=== PATIENT | female | born 1985 | race Caucasian/White ===

== ENCOUNTER → 2016-10-04 | Outpatient (CLI) | payer OTHER ==
[~2016-10-04] MED LIST: ALBUTEROL0.09 MG/A2 IH; ALEVE220 MG PO; AMOXICILLIN500 MG PO; ANAPROX275 MG PO; BACTRIM DS 8001 TA1 PO; CIPROFLOXACIN500 MG PO; CLARITIN-D 24 H1 T24 PO; CLARITIN10 MG PO; DARVOCET N 1001 TAB PO; DOXYCYCLINE MO100 MG PO; ELMIRON100 MG PO; FLONASE ALLERG9.9 ML NAS; HYDROCODONE BIT1 T11 PO; IBU600 MG PO; LOMOTIL 0.025 M1 TA1 PO; MEDROL DOSEPAK4 MG PO; MIRENA52 MG IU; MOTRIN600 MG PO; MOTRIN800 MG PO; MUCINEX1200 MG PO; NKHM; PEN-VEE K500 MG PO; PEN-VK500 MG PO; PHENERGAN W/ DE30 ML PO; PREDNISONE20 MG PO; PRILOSEC20 MG PO; PYRIDIUM200 MG PO; ROBITUSSIN DAC PO; TOBREX OPHTH S2.5 ML OPH; TRAMADOL HCL50 MG PO; TRIMOX500 MG PO; TYLENOL W/CODEI1 TA2 PO; Tessalon Perle100 MG PO; ULTRAM50 MG PO; VICODIN 5/500 505 MG PO; VICODIN ES 7501 TAB PO; ZITHROMAX TRI-500 MG PO; ZITHROMAX Z PA250 MG PO; ZITHROMAX Z-PA250 MG PO; ZOFRAN ODT4 MG SL
[2016-10-04 08:07] LABS: BASO # 0.1 10*3/uL (0.0-0.1); BASO % 0.7 % (0.0-1.0); EOS # 0.3 10*3/uL (0.0-0.4); EOS % 2.3 % (1.0-4.0); HEMOGLOBIN 14.3 g/dl (12.0-16.0); IG # 0.2 10*3/uL (0.0-0.1); LYMPH # 3.5 10*3/uL (1.3-4.4); LYMPH % 28.5 % (27.0-41.0); MEAN CELL VOLUME 88.7 fl (81.0-99.0); MEAN CORPUSCULAR HGB 29.5 pg (27.0-31.0); MEAN CORPUSCULAR HGB CONC 33.3 g/dl (33.0-37.0); MEAN PLATELET VOLUME 8.5 fl (9.6-12.3); MONO # 0.8 10*3/uL (0.1-1.0); MONO % 6.6 % (3.0-9.0); NEUT # 7.3 10*3/uL (2.3-7.9); NEUT % 60.4 % (47.0-73.0); PLATELET COUNT AUTOMATED 407 10*3/uL (130-400); RED BLOOD COUNT 4.85 10*6/uL (4.10-5.10); WHITE BLOOD COUNT 12.1 10*3/uL (4.8-10.8)
[2016-10-04 08:09] LABS: BILIRUBIN NEGATIVE (NEGATIVE); BLOOD 1+ (NEGATIVE); CLARITY SL CLOUDY (CLEAR); COLOR YELLOW (YELLOW); GLUCOSE NEGATIVE (NEGATIVE); KETONE NEGATIVE (NEGATIVE); LEUKO ESTERASE TRACE (NEGATIVE); NITRITE NEGATIVE (NEGATIVE); PROTEIN NEGATIVE (NEGATIVE); UROBILINOGEN 0.2 E.U./dl (0.2-1.0)
[2016-10-04 08:20] LABS: BACTERIA TRACE; EPITHELIAL CELLS 16-20; MUCOUS 2+
[2016-10-04 08:28] LABS: ALBUMIN 3.6 gm/dl (3.1-4.5); ALKALINE PHOSPHATASE 73 U/L (45-117); BILIRUBIN, DIRECT < 0.1 mg/dL (0.0-0.2); BILIRUBIN, TOTAL 0.3 mg/dl (0.2-1.0); BUN 7 mg/dl (7-24); CARBON DIOXIDE 26 mmol/L (21-32); CHLORIDE 104 mmol/L (98-107); CHOLESTEROL 148 mg/dL (<200); EST GLOM FILT AFRICAN AMERICAN > 60 ml/min; GLUCOSE 99 mg/dL (65-99); HDL CHOLESTEROL 40 mg/dl (40-60); LDL CHOLESTEROL 90 mg/dL (9-159); SGOT/AST 18 IU/L (3-35); SGPT/ALT 31 U/L (12-78); SODIUM 141 mmol/L (136-145); THYROXINE (T4) TOTAL 7.9 ug/dl (4.8-13.9); TOTAL PROTEIN 7.1 gm/dL (6.4-8.2); TRIGLYCERIDES 92 mg/dl (<150); VLDL CHOLESTEROL 18 mg/dL (6-40)
== END | disposition home or self-care (01) ==
LOC: LAB 07:39
PROVIDERS: Nurse Practitioner Psychiatric/Mental Health
DX: F33.2 Major depressive disorder, recurrent severe without psychotic features (principal)

== ENCOUNTER 2016-10-07 09:26 | Emergency (ER) | payer OTHER ==
[~2016-10-07] VITALS: Ht 175.2 cm; Wt 97.5 kg
[2016-10-07] MEDS ORDERED: PRISTIQ50 MG PO (09:32)
[2016-10-07] MEDS ORDERED: DIPHENHYDRAMINE25 M2 PO (09:32)
== END 2016-10-07 10:04 | disposition home or self-care (01) ==
LOC: ED 09:26
DX: S05.02XA Injury of conjunctiva and corneal abrasion without foreign body, left eye, initial encounter (principal); F17.200 Nicotine dependence, unspecified, uncomplicated; Z79.899 Other long term (current) drug therapy; X58.XXXA Exposure to other specified factors, initial encounter; Y93.89 Activity, other specified; Y92.89 Other specified places as the place of occurrence of the external cause; Y99.9 Unspecified external cause status

== ENCOUNTER 2016-12-02 14:42 | Emergency (ER) | payer OTHER ==
[~2016-12-02] VITALS: Ht 177.8 cm; Wt 97.5 kg
[~2016-12-02 14:42] MED LIST changes: +DIPHENHYDRAMINE25 M2 PO; +PRISTIQ50 MG PO
[2016-12-02] MEDS ORDERED: DESVENLAFAXINE50 M4 PO (14:46)
[2016-12-02] MEDS ORDERED: TRAZODONE50 MG PO (14:47)
[2016-12-02] MEDS ORDERED: NAPROSYN500 MG PO (14:57)
== END 2016-12-02 15:02 | disposition home or self-care (01) ==
LOC: ED 14:42
DX: M79.604 Pain in right leg (principal)

== ENCOUNTER 2016-12-18 20:30 | Emergency (ER) | payer OTHER ==
[~2016-12-18] VITALS: Ht 177.8 cm; Wt 97.5 kg
[~2016-12-18 20:30] MED LIST changes: +DESVENLAFAXINE50 M4 PO; +NAPROSYN500 MG PO; +TRAZODONE50 MG PO
[2016-12-18] MEDS ORDERED: TYLENOL325 M2 PO (20:37)
[2016-12-18] MEDS ORDERED: AMOXICILLIN500 M2 PO (20:54)
[2016-12-18] MEDS ORDERED: NAPROSYN500 MG PO (20:54)
== END 2016-12-18 21:01 | disposition home or self-care (01) ==
LOC: ED 20:30
DX: K08.89 Other specified disorders of teeth and supporting structures (principal); F17.200 Nicotine dependence, unspecified, uncomplicated; Z79.899 Other long term (current) drug therapy

== ENCOUNTER 2016-12-29 01:34 | Emergency (ER) | payer OTHER ==
[~2016-12-29] VITALS: Wt 106.1 kg
[~2016-12-29 01:34] MED LIST changes: +AMOXICILLIN500 M2 PO; +TYLENOL325 M2 PO
[2016-12-29] MEDS ORDERED: CLINDAMYCIN HC300 MG PO (02:48)
== END 2016-12-29 02:57 | disposition home or self-care (01) ==
LOC: ED 01:34
DX: K04.01 Reversible pulpitis (principal); K02.9 Dental caries, unspecified; F17.200 Nicotine dependence, unspecified, uncomplicated

== ENCOUNTER 2017-01-22 20:44 | Emergency (ER) | payer OTHER ==
[~2017-01-22] VITALS: Ht 177.8 cm; Wt 102.1 kg
[~2017-01-22 20:44] MED LIST changes: +CLINDAMYCIN HC300 MG PO
[2017-01-22 21:05] LABS: BILIRUBIN NEGATIVE (NEGATIVE); BLOOD 3+ (NEGATIVE); CLARITY SL CLOUDY (CLEAR); COLOR YELLOW (YELLOW); GLUCOSE NEGATIVE (NEGATIVE); KETONE NEGATIVE (NEGATIVE); LEUKO ESTERASE 1+ (NEGATIVE); NITRITE POSITIVE (NEGATIVE); PROTEIN TRACE (NEGATIVE); SPECIFIC GRAVITY >= 1.030 (1.005-1.030); UROBILINOGEN 0.2 E.U./dl (0.2-1.0)
[2017-01-22 21:12] LABS: BACTERIA 2+; MUCOUS TRACE; URINE REFLEX COMMENT YES (NO); WBC TNTC wbc/hpf (0-5)
[2017-01-22] MEDS ORDERED: MACROBID100 M1 PO (21:32)
== END 2017-01-22 21:31 | disposition home or self-care (01) ==
LOC: ED 20:44
PROVIDERS: Nurse Practitioner Family
DX: N39.0 Urinary tract infection, site not specified (principal); R31.9 Hematuria, unspecified

== ENCOUNTER 2017-02-03 18:41 | Emergency (ER) | payer OTHER ==
[~2017-02-03] VITALS: Ht 177.8 cm; Wt 99.8 kg
[~2017-02-03 18:41] MED LIST changes: +MACROBID100 M1 PO
[2017-02-03] MEDS ORDERED: PRISTIQ ER25 MG PO (19:08)
[2017-02-03] MEDS ORDERED: AMOXICILLIN500 M2 PO (19:39)
== END 2017-02-03 20:23 | disposition home or self-care (01) ==
LOC: ED 18:41
DX: K08.89 Other specified disorders of teeth and supporting structures (principal)

== ENCOUNTER 2017-02-07 18:06 | Emergency (ER) | payer OTHER ==
[~2017-02-07] VITALS: Ht 177.8 cm; Wt 102.1 kg
[~2017-02-07 18:06] MED LIST changes: +PRISTIQ ER25 MG PO
== END 2017-02-07 18:47 | disposition home or self-care (01) ==
LOC: ED 18:06
DX: T15.91XA Foreign body on external eye, part unspecified, right eye, initial encounter (principal); Z79.899 Other long term (current) drug therapy; X58.XXXA Exposure to other specified factors, initial encounter; Y93.89 Activity, other specified; Y92.89 Other specified places as the place of occurrence of the external cause; Y99.8 Other external cause status

== ENCOUNTER 2017-03-09 21:36 | Emergency (ER) | payer OTHER ==
[~2017-03-09] VITALS: Ht 175.2 cm; Wt 97.5 kg
[2017-03-09] MEDS ORDERED: MEDROL DOSEPAK4 MG PO (22:48)
== END 2017-03-09 23:39 | disposition home or self-care (01) ==
LOC: ED 21:36
DX: R21 Rash and other nonspecific skin eruption (principal); Z79.899 Other long term (current) drug therapy

== ENCOUNTER 2017-03-19 19:48 | Emergency (ER) | payer OTHER ==
[2017-03-19] MEDS ORDERED: SEROQUEL25 MG PO (19:59)
[2017-03-19] MEDS ORDERED: Peridex 473 ML473 ML PO (20:09)
[2017-03-19] MEDS ORDERED: NAPROSYN500 MG PO (20:09)
[2017-03-19] MEDS ORDERED: PENICILLIN VK500 MG PO (20:09)
== END 2017-03-19 20:50 | disposition home or self-care (01) ==
LOC: ED 19:48
DX: K02.9 Dental caries, unspecified (principal); R03.0 Elevated blood-pressure reading, without diagnosis of hypertension; Z79.899 Other long term (current) drug therapy

== ENCOUNTER 2017-03-21 21:04 | Emergency (ER) | payer OTHER ==
[~2017-03-21] VITALS: Wt 97.5 kg
[~2017-03-21 21:04] MED LIST changes: +PENICILLIN VK500 MG PO; +Peridex 473 ML473 ML PO; +SEROQUEL25 MG PO
== END 2017-03-21 22:58 | disposition home or self-care (01) ==
LOC: ED 21:04
DX: K04.7 Periapical abscess without sinus (principal); Z79.899 Other long term (current) drug therapy

== ENCOUNTER 2017-04-01 12:34 | Emergency (ER) | payer OTHER ==
[~2017-04-01] VITALS: Wt 102.1 kg
[2017-04-01] MEDS ORDERED: LAMICTAL25 MG PO (12:51)
[2017-04-01 13:21] LABS: BASO # 0.1 10*3/uL (0.0-0.1); BASO % 0.8 % (0.0-1.0); EOS # 0.2 10*3/uL (0.0-0.4); EOS % 1.7 % (1.0-4.0); HEMATOCRIT 41.5 % (37.0-47.0); HEMOGLOBIN 13.8 g/dl (12.0-16.0); LYMPH # 2.3 10*3/uL (1.3-4.4); LYMPH % 24.2 % (27.0-41.0); MEAN CELL VOLUME 87.9 fl (81.0-99.0); MEAN CORPUSCULAR HGB 29.2 pg (27.0-31.0); MEAN CORPUSCULAR HGB CONC 33.3 g/dl (33.0-37.0); MEAN PLATELET VOLUME 8.5 fl (9.6-12.3); MONO # 0.6 10*3/uL (0.1-1.0); MONO % 6.3 % (3.0-9.0); NEUT % 64.7 % (47.0-73.0); PLATELET COUNT AUTOMATED 401 10*3/uL (130-400); RED BLOOD COUNT 4.72 10*6/uL (4.10-5.10); RED CELL DISTRI WIDTH 11.6 % (0-14.5); WHITE BLOOD COUNT 9.3 10*3/uL (4.8-10.8)
[2017-04-01 13:40] LABS: ALBUMIN 3.3 gm/dl (3.1-4.5); ALKALINE PHOSPHATASE 76 U/L (45-117); BUN 10 mg/dl (7-24); CHLORIDE 102 mmol/L (98-107); CREATININE 0.88 mg/dL (0.55-1.02); MAGNESIUM 2.1 mg/dL (1.5-2.1); POTASSIUM 3.5 mmol/L (3.5-5.1); SGOT/AST 27 IU/L (3-35); SGPT/ALT 40 U/L (12-78); SODIUM 136 mmol/L (136-145); TOTAL PROTEIN 7.6 gm/dL (6.4-8.2); TROPONIN I < 0.015 ng/ml (<0.045)
== END 2017-04-01 14:43 | disposition home or self-care (01) ==
LOC: ED 12:34
PROVIDERS: Nurse Practitioner Family
DX: R42 Dizziness and giddiness (principal); R03.0 Elevated blood-pressure reading, without diagnosis of hypertension; Z79.899 Other long term (current) drug therapy

== ENCOUNTER 2017-04-09 17:13 | Emergency (ER) | payer OTHER ==
[~2017-04-09] VITALS: Wt 102.1 kg
[~2017-04-09 17:13] MED LIST changes: +LAMICTAL25 MG PO
== END 2017-04-09 17:59 | disposition home or self-care (01) ==
LOC: ED 17:13
DX: G89.18 Other acute postprocedural pain (principal); Z79.899 Other long term (current) drug therapy

== ENCOUNTER 2017-05-09 15:35 | Emergency (ER) | payer OTHER ==
[~2017-05-09] VITALS: Ht 177.8 cm; Wt 102.1 kg
[2017-05-09] MEDS ORDERED: DEPAKOTE250 MG PO (15:53)
[2017-05-09] MEDS ORDERED: POTASSIUM CHLO10 ME4 PO (15:54)
[2017-05-09] MEDS ORDERED: ZANTAC 150150 MG PO (15:54)
[2017-05-09] MEDS ORDERED: HYDROCHLOROTHIA25 M1 PO (15:55)
[2017-05-09 16:25] LABS: BILIRUBIN NEGATIVE (NEGATIVE); BLOOD TRACE-INTACT (NEGATIVE); CLARITY SL CLOUDY (CLEAR); COLOR YELLOW (YELLOW); GLUCOSE NEGATIVE (NEGATIVE); KETONE NEGATIVE (NEGATIVE); LEUKO ESTERASE NEGATIVE (NEGATIVE); NITRITE NEGATIVE (NEGATIVE); UROBILINOGEN 0.2 E.U./dl (0.2-1.0)
[2017-05-09 16:35] LABS: BACTERIA 1+
[2017-05-09] MEDS ORDERED: CYCLOBENZAPRINE5 M3 PO (17:16)
[2017-05-09] MEDS ORDERED: MEDROL DOSEPAK4 MG PO (17:16)
== END 2017-05-09 17:20 | disposition home or self-care (01) ==
LOC: ED 15:35
PROVIDERS: Nurse Practitioner Family
DX: M54.42 Lumbago with sciatica, left side (principal); Z79.899 Other long term (current) drug therapy

== ENCOUNTER → 2017-06-02 | Outpatient (CLI) | payer OTHER ==
[~2017-06-02] MED LIST changes: +CYCLOBENZAPRINE5 M3 PO; +DEPAKOTE250 MG PO; +HYDROCHLOROTHIA25 M1 PO; +POTASSIUM CHLO10 ME4 PO; +ZANTAC 150150 MG PO
== END | disposition home or self-care (01) ==
LOC: US 05-23 13:53
DX: K76.0 Fatty (change of) liver, not elsewhere classified (principal)

== ENCOUNTER 2017-06-10 20:00 | Emergency (ER) | payer OTHER ==
[~2017-06-10] VITALS: Ht 180.3 cm; Wt 97.5 kg
[2017-06-10 21:12] LABS: BILIRUBIN NEGATIVE (NEGATIVE); BLOOD 2+ (NEGATIVE); CLARITY CLEAR (CLEAR); COLOR YELLOW (YELLOW); GLUCOSE NEGATIVE (NEGATIVE); KETONE NEGATIVE (NEGATIVE); LEUKO ESTERASE TRACE (NEGATIVE); NITRITE NEGATIVE (NEGATIVE); PH 6.5 (5.0-9.0); UROBILINOGEN 0.2 E.U./dl (0.2-1.0)
[2017-06-10 21:19] LABS: BACTERIA 2+; WBC 16-20 wbc/hpf (0-5)
[2017-06-10 22:00] LABS: BASO # 0.1 10*3/uL (0.0-0.1); BASO % 0.7 % (0.0-1.0); EOS # 0.2 10*3/uL (0.0-0.4); EOS % 1.9 % (1.0-4.0); LYMPH # 3.6 10*3/uL (1.3-4.4); LYMPH % 35.9 % (27.0-41.0); MEAN CELL VOLUME 84.7 fl (81.0-99.0); MEAN CORPUSCULAR HGB 28.9 pg (27.0-31.0); MEAN CORPUSCULAR HGB CONC 34.1 g/dl (33.0-37.0); MEAN PLATELET VOLUME 8.9 fl (9.6-12.3); MONO # 0.8 10*3/uL (0.1-1.0); MONO % 8.5 % (3.0-9.0); NEUT # 5.1 10*3/uL (2.3-7.9); NEUT % 51.3 % (47.0-73.0); PLATELET COUNT AUTOMATED 333 10*3/uL (130-400); RED BLOOD COUNT 4.84 10*6/uL (4.10-5.10); RED CELL DISTRI WIDTH 11.7 % (0-14.5); WHITE BLOOD COUNT 9.9 10*3/uL (4.8-10.8)
[2017-06-10 22:15] LABS: ALBUMIN 3.4 gm/dl (3.1-4.5); ALKALINE PHOSPHATASE 78 U/L (45-117); BUN 11 mg/dl (7-24); CHLORIDE 100 mmol/L (98-107); CREATININE 0.72 mg/dL (0.55-1.02); POTASSIUM 3.6 mmol/L (3.5-5.1); SGOT/AST 34 IU/L (3-35); SGPT/ALT 51 U/L (12-78); SODIUM 137 mmol/L (136-145); TOTAL PROTEIN 7.6 gm/dL (6.4-8.2)
[2017-06-10] MEDS ORDERED: AMINOPHYLLIN200 MG PO (22:45)
[2017-06-10] MEDS ORDERED: PYRIDIUM200 M1 PO (22:45)
== END 2017-06-10 22:48 | disposition home or self-care (01) ==
LOC: ED 20:00
PROVIDERS: Physician Assistant
DX: N39.0 Urinary tract infection, site not specified (principal); Z79.899 Other long term (current) drug therapy

== ENCOUNTER 2017-07-08 15:25 | Emergency (ER) | payer OTHER ==
[~2017-07-08] VITALS: Ht 180.3 cm; Wt 102.1 kg
[~2017-07-08 15:25] MED LIST changes: +AMINOPHYLLIN200 MG PO; +PYRIDIUM200 M1 PO
[2017-07-08 16:01] LABS: BASO # 0.1 10*3/uL (0.0-0.1); BASO % 0.5 % (0.0-1.0); EOS # 0.1 10*3/uL (0.0-0.4); EOS % 1.2 % (1.0-4.0); HEMATOCRIT 41.1 % (37.0-47.0); LYMPH # 2.8 10*3/uL (1.3-4.4); LYMPH % 27.9 % (27.0-41.0); MEAN CELL VOLUME 84.6 fl (81.0-99.0); MEAN CORPUSCULAR HGB 28.8 pg (27.0-31.0); MEAN CORPUSCULAR HGB CONC 34.1 g/dl (33.0-37.0); MEAN PLATELET VOLUME 8.7 fl (9.6-12.3); MONO # 0.6 10*3/uL (0.1-1.0); MONO % 6.2 % (3.0-9.0); NEUT # 6.3 10*3/uL (2.3-7.9); NEUT % 62.1 % (47.0-73.0); PLATELET COUNT AUTOMATED 365 10*3/uL (130-400); RED BLOOD COUNT 4.86 10*6/uL (4.10-5.10); RED CELL DISTRI WIDTH 11.9 % (0-14.5); WHITE BLOOD COUNT 10.2 10*3/uL (4.8-10.8)
[2017-07-08 16:11] LABS: BUN 9 mg/dl (7-24); CHLORIDE 103 mmol/L (98-107); CREATININE 0.92 mg/dL (0.55-1.02); POTASSIUM 3.1 mmol/L (3.5-5.1); SODIUM 138 mmol/L (136-145)
== END 2017-07-08 20:14 | disposition home or self-care (01) ==
LOC: ED 15:25
PROVIDERS: Emergency Medicine
DX: R07.89 Other chest pain (principal); Z79.899 Other long term (current) drug therapy

== ENCOUNTER 2017-07-15 20:29 | Emergency (ER) | payer OTHER ==
[~2017-07-15] VITALS: Ht 154.9 cm; Wt 114.3 kg
[2017-07-15] MEDS ORDERED: TESSALON PERLE100 M1 PO (21:38)
[2017-07-15] MEDS ORDERED: PROAIR HFA8.5 GM INH (21:38)
== END 2017-07-15 21:49 | disposition home or self-care (01) ==
LOC: ED 20:29
DX: J20.9 Acute bronchitis, unspecified (principal); Z79.899 Other long term (current) drug therapy; Z87.891 Personal history of nicotine dependence

== ENCOUNTER 2017-07-27 17:00 | Emergency (ER) | payer OTHER ==
[~2017-07-27] VITALS: Ht 180.3 cm; Wt 116.1 kg
[~2017-07-27 17:00] MED LIST changes: +PROAIR HFA8.5 GM INH; +TESSALON PERLE100 M1 PO
== END 2017-07-27 19:56 | disposition home or self-care (01) ==
LOC: ED 17:00
DX: S46.811A Strain of other muscles, fascia and tendons at shoulder and upper arm level, right arm, initial encounter (principal); F17.200 Nicotine dependence, unspecified, uncomplicated; Z79.899 Other long term (current) drug therapy; W20.8XXA Other cause of strike by thrown, projected or falling object, initial encounter; Y93.89 Activity, other specified; Y92.89 Other specified places as the place of occurrence of the external cause; Y99.8 Other external cause status

== ENCOUNTER 2017-09-02 14:36 | Emergency (ER) | payer OTHER ==
[~2017-09-02] VITALS: Ht 180.3 cm; Wt 122.5 kg
[2017-09-02 15:20] LABS: BASO % 0.5 % (0.0-1.0); EOS # 0.1 10*3/uL (0.0-0.4); EOS % 1.6 % (1.0-4.0); HEMATOCRIT 39.7 % (37.0-47.0); HEMOGLOBIN 13.6 g/dl (12.0-16.0); LYMPH # 2.4 10*3/uL (1.3-4.4); LYMPH % 30.1 % (27.0-41.0); MEAN CELL VOLUME 84.1 fl (81.0-99.0); MEAN CORPUSCULAR HGB 28.8 pg (27.0-31.0); MEAN CORPUSCULAR HGB CONC 34.3 g/dl (33.0-37.0); MEAN PLATELET VOLUME 8.8 fl (9.6-12.3); MONO # 0.5 10*3/uL (0.1-1.0); MONO % 5.9 % (3.0-9.0); NEUT # 4.8 10*3/uL (2.3-7.9); NEUT % 60.1 % (47.0-73.0); PLATELET COUNT AUTOMATED 329 10*3/uL (130-400); RED BLOOD COUNT 4.72 10*6/uL (4.10-5.10); RED CELL DISTRI WIDTH 11.9 % (0-14.5); WHITE BLOOD COUNT 7.9 10*3/uL (4.8-10.8)
[2017-09-02 15:27] LABS: INTERNATIONAL NORM RATIO 0.9 (2.0-3.5)
[2017-09-02 15:36] LABS: ALBUMIN 3.3 gm/dl (3.1-4.5); ALKALINE PHOSPHATASE 80 U/L (45-117); BUN 10 mg/dl (7-24); CHLORIDE 96 mmol/L (98-107); LIPASE 146 U/L (73-393); SGOT/AST 34 IU/L (3-35); SGPT/ALT 56 U/L (12-78); SODIUM 136 mmol/L (136-145); TOTAL PROTEIN 7.5 gm/dL (6.4-8.2)
[2017-09-02 15:40] LABS: TROPONIN I < 0.015 ng/ml (<0.045)
[2017-09-02] MEDS ORDERED: K-TAB20 MEQ PO (19:26)
== END 2017-09-02 19:30 | disposition home or self-care (01) ==
LOC: ED 14:36
PROVIDERS: Physician Assistant
DX: R00.0 Tachycardia, unspecified (principal); E87.6 Hypokalemia; Z79.899 Other long term (current) drug therapy

== ENCOUNTER 2017-10-08 14:22 | Emergency (ER) | payer OTHER ==
[~2017-10-08] VITALS: Ht 180.3 cm; Wt 102.1 kg
[~2017-10-08 14:22] MED LIST changes: +K-TAB20 MEQ PO
[2017-10-08] MEDS ORDERED: SEROQUEL XR400 MG PO (14:35)
[2017-10-08] MEDS ORDERED: LOPRESSOR25 MG PO (14:36)
== END 2017-10-08 17:06 | disposition home or self-care (01) ==
LOC: ED 14:22
DX: G43.909 Migraine, unspecified, not intractable, without status migrainosus (principal); H53.149 Visual discomfort, unspecified

== ENCOUNTER 2017-10-28 19:46 | Emergency (ER) | payer OTHER ==
[~2017-10-28] VITALS: Ht 175.2 cm; Wt 97.5 kg
[~2017-10-28 19:46] MED LIST changes: +LOPRESSOR25 MG PO; +SEROQUEL XR400 MG PO
== END 2017-10-28 20:29 | disposition home or self-care (01) ==
LOC: ED 19:46
DX: S61.012A Laceration without foreign body of left thumb without damage to nail, initial encounter (principal); G43.909 Migraine, unspecified, not intractable, without status migrainosus; W45.8XXA Other foreign body or object entering through skin, initial encounter; Y93.89 Activity, other specified; Y92.89 Other specified places as the place of occurrence of the external cause; Y99.8 Other external cause status

== ENCOUNTER 2017-10-31 16:35 | Emergency (ER) | payer OTHER ==
[~2017-10-31] VITALS: Ht 177.8 cm; Wt 97.5 kg
== END 2017-10-31 16:59 | disposition home or self-care (01) ==
LOC: ED 16:35
DX: S61.012D Laceration without foreign body of left thumb without damage to nail, subsequent encounter (principal); G43.909 Migraine, unspecified, not intractable, without status migrainosus; Z79.899 Other long term (current) drug therapy; X58.XXXD Exposure to other specified factors, subsequent encounter

== ENCOUNTER 2017-12-11 19:39 | Emergency (ER) | payer OTHER ==
[~2017-12-11] VITALS: Ht 175.2 cm; Wt 97.5 kg
== END 2017-12-11 21:21 | disposition home or self-care (01) ==
LOC: ED 19:39
DX: G43.909 Migraine, unspecified, not intractable, without status migrainosus (principal)

== ENCOUNTER → 2017-12-16 | Outpatient (CLI) | payer OTHER ==
[2017-12-16 09:26] LABS: BASO # 0.1 10*3/uL (0.0-0.1); BASO % 0.8 % (0.0-1.0); EOS # 0.2 10*3/uL (0.0-0.4); EOS % 2.1 % (1.0-4.0); HEMATOCRIT 44.6 % (37.0-47.0); HEMOGLOBIN 14.9 g/dl (12.0-16.0); LYMPH % 37.4 % (27.0-41.0); MEAN CELL VOLUME 86.4 fl (81.0-99.0); MEAN CORPUSCULAR HGB 28.9 pg (27.0-31.0); MEAN CORPUSCULAR HGB CONC 33.4 g/dl (33.0-37.0); MEAN PLATELET VOLUME 8.8 fl (9.6-12.3); MONO # 0.5 10*3/uL (0.1-1.0); MONO % 6.8 % (3.0-9.0); NEUT # 4.1 10*3/uL (2.3-7.9); NEUT % 51.9 % (47.0-73.0); PLATELET COUNT AUTOMATED 302 10*3/uL (130-400); RED BLOOD COUNT 5.16 10*6/uL (4.10-5.10); RED CELL DISTRI WIDTH 11.9 % (0-14.5)
[2017-12-16 09:55] LABS: ALBUMIN 3.8 gm/dl (3.1-4.5); ALKALINE PHOSPHATASE 93 U/L (45-117); BUN 9 mg/dl (7-24); CHLORIDE 107 mmol/L (98-107); CHOLESTEROL 174 mg/dL (<200); CREATININE 0.78 mg/dL (0.55-1.02); HDL CHOLESTEROL 32 mg/dl (40-60); LDL CHOLESTEROL 120 mg/dL (9-159); POTASSIUM 4.1 mmol/L (3.5-5.1); SGOT/AST 56 IU/L (3-35); SGPT/ALT 80 U/L (12-78); SODIUM 139 mmol/L (136-145); TOTAL PROTEIN 7.6 gm/dL (6.4-8.2); TRIGLYCERIDES 110 mg/dl (<150); VLDL CHOLESTEROL 22 mg/dL (6-40)
== END | disposition home or self-care (01) ==
LOC: LAB 09:08
PROVIDERS: Registered Nurse Psychiatric/Mental Health
DX: F33.3 Major depressive disorder, recurrent, severe with psychotic symptoms (principal)

== ENCOUNTER 2018-01-18 19:10 | Emergency (ER) | payer OTHER ==
[~2018-01-18] VITALS: Ht 177.8 cm; Wt 95.3 kg
[2018-02-13] MEDS ORDERED: VRAYLAR3 MG PO (17:46)
== END 2018-01-18 20:41 | disposition home or self-care (01) ==
LOC: ED 19:10
DX: F41.9 Anxiety disorder, unspecified (principal); G43.909 Migraine, unspecified, not intractable, without status migrainosus; F43.10 Post-traumatic stress disorder, unspecified

== ENCOUNTER 2018-02-11 07:48 | Emergency (ER) | payer OTHER ==
[~2018-02-11] VITALS: Ht 177.8 cm; Wt 119.3 kg
[2018-02-11] MEDS ORDERED: Motrin,Rufen800 MG PO (08:54)
[2018-02-13] MEDS ORDERED: VRAYLAR3 MG PO (17:46)
== END 2018-02-11 09:04 | disposition home or self-care (01) ==
LOC: ED 07:48
DX: S93.402A Sprain of unspecified ligament of left ankle, initial encounter (principal); G43.909 Migraine, unspecified, not intractable, without status migrainosus; W18.42XA Slipping, tripping and stumbling without falling due to stepping into hole or opening, initial encounter; Y93.89 Activity, other specified; Y92.89 Other specified places as the place of occurrence of the external cause; Y99.9 Unspecified external cause status

== ENCOUNTER 2018-02-14 18:12 | Emergency (ER) | payer OTHER ==
[~2018-02-14] VITALS: Wt 119.3 kg
[~2018-02-14 18:12] MED LIST changes: +Motrin,Rufen800 MG PO; +VRAYLAR3 MG PO
== END 2018-02-14 23:12 | disposition home or self-care (01) ==
LOC: ED 18:12
DX: R29.0 Tetany (principal); Z79.899 Other long term (current) drug therapy

== ENCOUNTER 2018-02-27 14:40 | Emergency (ER) | payer OTHER ==
[~2018-02-27] VITALS: Ht 177.8 cm; Wt 102.5 kg
[2018-02-27] MEDS ORDERED: Motrin,Rufen800 MG PO (17:14)
[2018-02-27] MEDS ORDERED: CYCLOBENZAPRINE5 M3 PO (17:14)
== END 2018-02-27 17:19 | disposition home or self-care (01) ==
LOC: ED 14:40
DX: S16.1XXA Strain of muscle, fascia and tendon at neck level, initial encounter (principal); Z79.899 Other long term (current) drug therapy; X58.XXXA Exposure to other specified factors, initial encounter; Y93.89 Activity, other specified; Y92.89 Other specified places as the place of occurrence of the external cause; Y99.8 Other external cause status

== ENCOUNTER 2018-03-25 17:49 | Emergency (ER) | payer OTHER ==
[2018-03-25] MEDS ORDERED: NYST SUSP PO (18:03)
[2018-07-01] MEDS ORDERED: PREDNISONE20 M1 PO (20:55)
[2018-07-01] MEDS ORDERED: ROBAXIN500 M1 PO (20:55)
== END 2018-03-25 18:17 | disposition home or self-care (01) ==
LOC: ED 17:49
DX: K13.79 Other lesions of oral mucosa (principal); K12.0 Recurrent oral aphthae; Z79.899 Other long term (current) drug therapy

== ENCOUNTER 2018-05-20 11:00 | Emergency (ER) | payer OTHER ==
[~2018-05-20] VITALS: Ht 180.3 cm; Wt 122.5 kg
[~2018-05-20 11:00] MED LIST changes: +NYST SUSP PO
[2018-05-20] MEDS ORDERED: PREDNISONE10 MG PO (11:11)
== END 2018-05-20 11:20 | disposition home or self-care (01) ==
LOC: ED 11:00
DX: L30.9 Dermatitis, unspecified (principal); R03.0 Elevated blood-pressure reading, without diagnosis of hypertension; G43.909 Migraine, unspecified, not intractable, without status migrainosus; Z79.1 Long term (current) use of non-steroidal anti-inflammatories (NSAID); Z79.899 Other long term (current) drug therapy

== ENCOUNTER 2018-05-24 10:54 | Emergency (ER) | payer OTHER ==
[~2018-05-24] VITALS: Ht 180.3 cm; Wt 121.1 kg
[~2018-05-24 10:54] MED LIST changes: +PREDNISONE10 MG PO
[2018-05-24] MEDS ORDERED: FLONASE ALLERG9.9 ML NAS (11:49)
[2018-05-24] MEDS ORDERED: ZYRTEC10 MG PO (11:49)
[2018-05-24] MEDS ORDERED: PREDNISONE20 M1 PO (11:49)
== END 2018-05-24 13:00 | disposition home or self-care (01) ==
LOC: ED 10:54
DX: J01.90 Acute sinusitis, unspecified (principal); B97.89 Other viral agents as the cause of diseases classified elsewhere; H92.01 Otalgia, right ear

== ENCOUNTER 2018-06-18 15:49 | Emergency (ER) | payer OTHER ==
[~2018-06-18] VITALS: Ht 180.3 cm; Wt 102.5 kg
[~2018-06-18 15:49] MED LIST changes: +PREDNISONE20 M1 PO; +ZYRTEC10 MG PO
[2018-06-18 18:16] LABS: BILIRUBIN NEGATIVE (NEGATIVE); BLOOD 3+ (NEGATIVE); CLARITY SL CLOUDY (CLEAR); COLOR YELLOW (YELLOW); GLUCOSE NEGATIVE (NEGATIVE); KETONE NEGATIVE (NEGATIVE); LEUKO ESTERASE NEGATIVE (NEGATIVE); NITRITE NEGATIVE (NEGATIVE); PH 5.5 (5.0-9.0); SPECIFIC GRAVITY >= 1.030 (1.005-1.030); UROBILINOGEN 0.2 E.U./dl (0.2-1.0)
[2018-06-18 18:25] LABS: BACTERIA 3+; RBC 41-50 rbc/hpf (0-2)
[2018-06-18] MEDS ORDERED: SEPTDS PO (18:30)
== END 2018-06-18 18:35 | disposition home or self-care (01) ==
LOC: ED 15:49
PROVIDERS: Physician Assistant
DX: N39.0 Urinary tract infection, site not specified (principal); Z79.899 Other long term (current) drug therapy

== ENCOUNTER 2018-07-03 17:34 | Emergency (ER) | payer OTHER ==
[~2018-07-03] VITALS: Ht 180.3 cm; Wt 98.0 kg
[~2018-07-03 17:34] MED LIST changes: +ROBAXIN500 M1 PO; +SEPTDS PO
== END 2018-07-03 20:00 | disposition home or self-care (01) ==
LOC: ED 17:34
DX: R20.2 Paresthesia of skin (principal); M79.641 Pain in right hand; M54.2 Cervicalgia; M54.6 Pain in thoracic spine; G43.909 Migraine, unspecified, not intractable, without status migrainosus; Z79.899 Other long term (current) drug therapy; Z79.2 Long term (current) use of antibiotics

== ENCOUNTER 2018-07-19 15:13 | Emergency (ER) | payer OTHER ==
[~2018-07-19] VITALS: Wt 102.5 kg
== END 2018-07-19 17:27 | disposition home or self-care (01) ==
LOC: ED 15:13
DX: R04.0 Epistaxis (principal); Z79.899 Other long term (current) drug therapy

== ENCOUNTER 2018-08-14 16:36 | Emergency (ER) | payer OTHER ==
[~2018-08-14] VITALS: Ht 154.9 cm; Wt 99.8 kg
== END 2018-08-14 17:05 | disposition home or self-care (01) ==
LOC: ED 16:36
DX: G89.18 Other acute postprocedural pain (principal); K08.89 Other specified disorders of teeth and supporting structures; R68.84 Jaw pain; G43.909 Migraine, unspecified, not intractable, without status migrainosus; Z79.2 Long term (current) use of antibiotics; Z79.899 Other long term (current) drug therapy

== ENCOUNTER 2018-11-15 11:55 | Emergency (ER) | payer OTHER ==
[~2018-11-15] VITALS: Ht 180.3 cm; Wt 102.5 kg
[2018-11-15] MEDS ORDERED: NAPROSYN500 MG PO (12:53)
[2018-11-15] MEDS ORDERED: PROVENTIL HFA6.7 GM INH ×2 (14:31→14:34)
[2018-11-15] MEDS ORDERED: VIBRAMYCIN100 MG PO ×2 (14:31→14:34)
[2018-11-15] MEDS ORDERED: DIFLUCAN150 MG PO (14:34)
[2018-12-14] MEDS ORDERED: MEDROL DOSEPAK4 MG PO (18:38)
[2018-12-14] MEDS ORDERED: BENADRYL ALLERG25 M5 PO (18:38)
[2019-01-01] MEDS ORDERED: FLONASE ALLERG9.9 ML NAS (19:13)
[2019-01-01] MEDS ORDERED: ALLEGRA ALLERG180 M2 PO (19:13)
== END 2018-11-15 14:43 | disposition home or self-care (01) ==
LOC: ED 11:55
DX: J40 Bronchitis, not specified as acute or chronic (principal); G43.909 Migraine, unspecified, not intractable, without status migrainosus; Z79.899 Other long term (current) drug therapy; Z79.2 Long term (current) use of antibiotics

== ENCOUNTER 2019-05-26 16:27 | Emergency (ER) | payer OTHER ==
[~2019-05-26] VITALS: Ht 180.3 cm; Wt 103.4 kg
[~2019-05-26 16:27] MED LIST changes: +ALLEGRA ALLERG180 M2 PO; +BENADRYL ALLERG25 M5 PO; +DIFLUCAN150 MG PO; +PROVENTIL HFA6.7 GM INH; +VIBRAMYCIN100 MG PO
== END 2019-05-26 18:00 | disposition home or self-care (01) ==
LOC: ED 16:27
DX: S93.401A Sprain of unspecified ligament of right ankle, initial encounter (principal); Z79.899 Other long term (current) drug therapy; X50.1XXA Overexertion from prolonged static or awkward postures, initial encounter; Y93.89 Activity, other specified; Y92.89 Other specified places as the place of occurrence of the external cause; Y99.8 Other external cause status

== ENCOUNTER 2019-06-30 11:51 | Emergency (ER) | payer OTHER ==
[~2019-06-30] VITALS: Ht 175.2 cm; Wt 125.2 kg
[2019-06-30] MEDS ORDERED: PREDNISONE50 MG PO (12:25)
[2019-06-30] MEDS ORDERED: ROBITUSSIN DM 105 ML PO (12:25)
[2019-06-30] MEDS ORDERED: ZITHROMAX250 MG PO (12:25)
== END 2019-06-30 12:41 | disposition home or self-care (01) ==
LOC: ED 11:51
DX: J20.9 Acute bronchitis, unspecified (principal); G43.909 Migraine, unspecified, not intractable, without status migrainosus; Z79.2 Long term (current) use of antibiotics; Z79.899 Other long term (current) drug therapy

== ENCOUNTER 2019-07-08 16:50 | Emergency (ER) | payer OTHER ==
[~2019-07-08] VITALS: Ht 180.3 cm; Wt 121.1 kg
[~2019-07-08 16:50] MED LIST changes: +PREDNISONE50 MG PO; +ROBITUSSIN DM 105 ML PO; +ZITHROMAX250 MG PO
[2019-07-08 17:54] LABS: BASO # 0.1 10*3/uL (0.0-0.1); BASO % 0.4 % (0.0-1.0); EOS # 0.3 10*3/uL (0.0-0.4); EOS % 1.9 % (1.0-4.0); HEMATOCRIT 40.4 % (37.0-47.0); HEMOGLOBIN 13.2 g/dl (12.0-16.0); LYMPH # 4.6 10*3/uL (1.3-4.4); MEAN CELL VOLUME 86.9 fl (81.0-99.0); MEAN CORPUSCULAR HGB 28.4 pg (27.0-31.0); MEAN CORPUSCULAR HGB CONC 32.7 g/dl (33.0-37.0); MEAN PLATELET VOLUME 8.7 fl (9.6-12.3); MONO # 0.7 10*3/uL (0.1-1.0); NEUT # 7.8 10*3/uL (2.3-7.9); NEUT % 57.7 % (47.0-73.0); PLATELET COUNT AUTOMATED 400 10*3/uL (130-400); RED BLOOD COUNT 4.65 10*6/uL (4.10-5.10); RED CELL DISTRI WIDTH 12.2 % (0-14.5); WHITE BLOOD COUNT 13.6 10*3/uL (4.8-10.8)
[2019-07-08 18:08] LABS: ALBUMIN 3.5 gm/dl (3.1-4.5); ALKALINE PHOSPHATASE 85 U/L (45-117); BUN 13 mg/dl (7-24); CHLORIDE 107 mmol/L (98-107); CREATININE 0.91 mg/dL (0.55-1.02); POTASSIUM 3.6 mmol/L (3.5-5.1); SGOT/AST 15 IU/L (3-35); SGPT/ALT 29 U/L (12-78); SODIUM 140 mmol/L (136-145); TOTAL PROTEIN 7.6 gm/dL (6.4-8.2)
[2019-07-08] MEDS ORDERED: FLONASE ALLERG9.9 ML NAS (18:36)
[2019-07-08] MEDS ORDERED: MUCINEX1200 M1 PO (18:36)
[2019-07-08] MEDS ORDERED: ALLEGRA ALLERG180 M2 PO (18:36)
== END 2019-07-08 18:47 | disposition home or self-care (01) ==
LOC: ED 16:50
PROVIDERS: Physician Assistant
DX: J40 Bronchitis, not specified as acute or chronic (principal); G43.909 Migraine, unspecified, not intractable, without status migrainosus; Z87.891 Personal history of nicotine dependence; Z79.899 Other long term (current) drug therapy; Z79.2 Long term (current) use of antibiotics

== ENCOUNTER 2020-06-13 15:13 | Emergency (ER) | payer OTHER ==
[~2020-06-13] VITALS: Ht 180.3 cm; Wt 117.9 kg
[~2020-06-13 15:13] MED LIST changes: +MUCINEX1200 M1 PO
== END 2020-06-13 16:54 | disposition home or self-care (01) ==
LOC: ED 15:13
DX: S66.912A Strain of unspecified muscle, fascia and tendon at wrist and hand level, left hand, initial encounter (principal); Z79.899 Other long term (current) drug therapy; X58.XXXA Exposure to other specified factors, initial encounter; Y93.89 Activity, other specified; Y92.89 Other specified places as the place of occurrence of the external cause; Y99.8 Other external cause status

== ENCOUNTER 2020-06-19 12:50 | Emergency (ER) | payer OTHER ==
[~2020-06-19] VITALS: Ht 180.3 cm; Wt 117.9 kg
[2020-06-19] MEDS ORDERED: CEPHALEXIN500 M1 PO (14:35)
[2020-06-19] MEDS ORDERED: IBUPROFEN600 MG PO (14:35)
== END 2020-06-19 15:39 | disposition home or self-care (01) ==
LOC: ED 12:50
DX: S63.501A Unspecified sprain of right wrist, initial encounter (principal); S83.92XA Sprain of unspecified site of left knee, initial encounter; S81.002A Unspecified open wound, left knee, initial encounter; Z79.899 Other long term (current) drug therapy; X58.XXXA Exposure to other specified factors, initial encounter; Y93.89 Activity, other specified; Y92.89 Other specified places as the place of occurrence of the external cause; Y99.8 Other external cause status

== ENCOUNTER → 2020-07-21 | Outpatient (CLI) | payer OTHER ==
[~2020-07-21] MED LIST changes: +CEPHALEXIN500 M1 PO; +IBUPROFEN600 MG PO
== END | disposition home or self-care (01) ==
LOC: COVID19 10:55
PROVIDERS: ATTEND Nurse Practitioner Family
DX: Z20.822 Contact with and (suspected) exposure to COVID-19 (principal)

== ENCOUNTER → 2020-08-08 | Outpatient (CLI) | payer OTHER | END | disposition home or self-care (01) | LOC: US 10:29 | PROVIDERS: ATTEND Nurse Practitioner Family | DX: K76.0 Fatty (change of) liver, not elsewhere classified (principal); K30 Functional dyspepsia; R11.0 Nausea ==

== ENCOUNTER 2020-09-15 18:05 | Emergency (ER) | payer OTHER ==
[~2020-09-15] VITALS: Ht 180.3 cm; Wt 102.5 kg
== END 2020-09-15 18:37 | disposition home or self-care (01) ==
LOC: ED 18:05
DX: S61.211A Laceration without foreign body of left index finger without damage to nail, initial encounter (principal); F31.9 Bipolar disorder, unspecified; F41.9 Anxiety disorder, unspecified; G43.909 Migraine, unspecified, not intractable, without status migrainosus; Z98.51 Tubal ligation status; W26.8XXA Contact with other sharp object(s), not elsewhere classified, initial encounter; Y93.89 Activity, other specified; Y92.89 Other specified places as the place of occurrence of the external cause; Y99.8 Other external cause status

== ENCOUNTER 2021-11-19 10:48 | Emergency (ER) | payer OTHER ==
[~2021-11-19] VITALS: Wt 118.4 kg
[2021-11-19] MEDS ORDERED: TYLENOL325 M1 PO (11:13)
[2021-11-19] MEDS ORDERED: PENICILLIN-VK500 MG PO (11:13)
[2021-11-19] MEDS ORDERED: NAPROXEN250 MG PO (11:13)
== END 2021-11-19 11:16 | disposition home or self-care (01) ==
LOC: ED 10:48
DX: K02.9 Dental caries, unspecified (principal); G43.909 Migraine, unspecified, not intractable, without status migrainosus; Z79.899 Other long term (current) drug therapy

== ENCOUNTER 2022-01-06 14:45 | Emergency (ER) | payer OTHER ==
[~2022-01-06] VITALS: Ht 180.3 cm; Wt 117.9 kg
[~2022-01-06 14:45] MED LIST changes: +NAPROXEN250 MG PO; +PENICILLIN-VK500 MG PO; +TYLENOL325 M1 PO
== END 2022-01-06 18:06 | disposition home or self-care (01) ==
LOC: ED 14:45
DX: M25.531 Pain in right wrist (principal); Z79.899 Other long term (current) drug therapy

== ENCOUNTER 2022-01-19 12:09 | Emergency (ER) | payer OTHER ==
[~2022-01-19] VITALS: Ht 180.3 cm; Wt 117.9 kg
== END 2022-01-19 14:57 | disposition home or self-care (01) ==
LOC: ED 12:09
DX: U07.1 COVID-19 (principal); Z79.899 Other long term (current) drug therapy

== ENCOUNTER → 2022-01-25 | Outpatient (CLI) | payer OTHER | END | disposition home or self-care (01) | LOC: RAD 16:01 | PROVIDERS: ATTEND Nurse Practitioner Family | DX: U07.1 COVID-19 (principal) ==

== ENCOUNTER 2022-03-25 17:19 | Emergency (ER) | payer OTHER ==
[~2022-03-25] VITALS: Ht 180.3 cm; Wt 117.9 kg
== END 2022-03-25 19:02 | disposition home or self-care (01) ==
LOC: ED 17:19
DX: R05.9 Cough, unspecified (principal); Z20.822 Contact with and (suspected) exposure to COVID-19; R09.89 Other specified symptoms and signs involving the circulatory and respiratory systems; Z79.899 Other long term (current) drug therapy; F17.200 Nicotine dependence, unspecified, uncomplicated

== ENCOUNTER 2022-04-27 07:52 | Emergency (ER) | payer OTHER ==
[2022-04-27] MEDS ORDERED: PENICILLIN VK500 MG PO (08:20)
[2022-04-27] MEDS ORDERED: DIFLUCAN150 MG PO (08:21)
== END 2022-04-27 08:28 | disposition home or self-care (01) ==
LOC: ED 07:52
DX: K02.9 Dental caries, unspecified (principal); Z79.899 Other long term (current) drug therapy

== ENCOUNTER 2022-05-22 14:58 | Emergency (ER) | payer OTHER ==
[~2022-05-22] VITALS: Ht 180.3 cm; Wt 117.9 kg
[2022-05-22] MEDS ORDERED: ZITHROMAX250 MG PO (16:29)
[2022-05-22] MEDS ORDERED: BROMFED DM COU118 M2 PO (16:29)
== END 2022-05-22 16:57 | disposition home or self-care (01) ==
LOC: ED 14:58
DX: J20.9 Acute bronchitis, unspecified (principal); Z20.822 Contact with and (suspected) exposure to COVID-19

== ENCOUNTER → 2022-09-21 | Outpatient (CLI) | payer OTHER ==
[~2022-09-21] MED LIST changes: +BROMFED DM COU118 M2 PO
== END | disposition home or self-care (01) ==
LOC: LAB 00:19
PROVIDERS: ATTEND Nurse Practitioner Women's Health
DX: D64.9 Anemia, unspecified (principal)

== ENCOUNTER → 2022-10-08 | Outpatient (CLI) | payer OTHER | END | disposition home or self-care (01) | LOC: US 13:00 | PROVIDERS: ATTEND Nurse Practitioner Women's Health | DX: N83.01 Follicular cyst of right ovary (principal); N93.9 Abnormal uterine and vaginal bleeding, unspecified ==

== ENCOUNTER 2022-11-09 11:24 | Emergency (ER) | payer OTHER ==
[~2022-11-09] VITALS: Ht 180.3 cm; Wt 117.9 kg
== END 2022-11-09 15:05 | disposition home or self-care (01) ==
LOC: ED 11:24
DX: S90.122A Contusion of left lesser toe(s) without damage to nail, initial encounter (principal); W22.8XXA Striking against or struck by other objects, initial encounter; Y93.89 Activity, other specified; Y92.89 Other specified places as the place of occurrence of the external cause; Y99.8 Other external cause status

== ENCOUNTER 2022-12-16 13:36 | Emergency (ER) | payer OTHER ==
[~2022-12-16] VITALS: Ht 180.3 cm; Wt 117.9 kg
[2022-12-16 14:22] LABS: BASO # 0.1 10*3/uL (0.0-0.1); BASO % 0.6 % (0.0-1.0); EOS # 0.4 10*3/uL (0.0-0.4); EOS % 2.9 % (1.0-4.0); HEMATOCRIT 42.1 % (37.0-47.0); LYMPH # 3.1 10*3/uL (1.3-4.4); LYMPH % 25.7 % (27.0-41.0); MEAN CELL VOLUME 87.2 fl (81.0-99.0); MEAN CORPUSCULAR HGB CONC 33.3 g/dl (33.0-37.0); MEAN PLATELET VOLUME 8.5 fl (9.6-12.3); MONO # 0.7 10*3/uL (0.1-1.0); MONO % 5.6 % (3.0-9.0); NEUT # 7.9 10*3/uL (2.3-7.9); NEUT % 64.1 % (47.0-73.0); PLATELET COUNT AUTOMATED 378 10*3/uL (130-400); RED BLOOD COUNT 4.83 10*6/uL (4.10-5.10); RED CELL DISTRI WIDTH 12.1 % (0-14.5); WHITE BLOOD COUNT 12.2 10*3/uL (4.8-10.8)
[2022-12-16 14:54] LABS: ALKALINE PHOSPHATASE 68 U/L (46-116); BUN 9 mg/dl (9-23); CHLORIDE 106 mmol/L (98-107); POTASSIUM 3.5 mmol/L (3.4-5.1); SGPT/ALT 16 U/L (10-49); TOTAL PROTEIN 7.2 gm/dL (6.0-8.0)
== END 2022-12-16 15:47 | disposition home or self-care (01) ==
LOC: ED 13:36
PROVIDERS: Student in an Organized Health Care Education/Training Program
DX: R53.83 Other fatigue (principal); R53.1 Weakness; R51.9 Headache, unspecified; Z79.2 Long term (current) use of antibiotics; Z79.899 Other long term (current) drug therapy

== ENCOUNTER 2023-02-21 17:46 | Emergency (ER) | payer OTHER | END 2023-02-21 20:52 | disposition home or self-care (01) | LOC: ED 17:46 | DX: M79.672 Pain in left foot (principal); F41.9 Anxiety disorder, unspecified; F31.9 Bipolar disorder, unspecified; G43.909 Migraine, unspecified, not intractable, without status migrainosus; Z98.51 Tubal ligation status; Z98.890 Other specified postprocedural states ==

== ENCOUNTER 2023-03-22 07:41 | Emergency (ER) | payer OTHER ==
[~2023-03-22] VITALS: Ht 180.3 cm; Wt 117.9 kg
[2023-03-22] MEDS ORDERED: ZITHROMAX250 MG PO (08:13)
== END 2023-03-22 08:24 | disposition home or self-care (01) ==
LOC: ED 07:41
DX: H60.92 Unspecified otitis externa, left ear (principal); H66.92 Otitis media, unspecified, left ear; F41.9 Anxiety disorder, unspecified; Z98.51 Tubal ligation status; F31.9 Bipolar disorder, unspecified; G43.909 Migraine, unspecified, not intractable, without status migrainosus; Z98.890 Other specified postprocedural states

== ENCOUNTER 2023-03-24 15:35 | Emergency (ER) | payer OTHER ==
[~2023-03-24] VITALS: Wt 117.9 kg
[2023-03-24] MEDS ORDERED: CIPROFLOX-DEXA7.5 ML OT (18:20)
[2023-03-24] MEDS ORDERED: AMOX-CLAV 875-1 EACH PO (18:20)
== END 2023-03-24 18:36 | disposition home or self-care (01) ==
LOC: ED 15:35
DX: H60.92 Unspecified otitis externa, left ear (principal); H66.92 Otitis media, unspecified, left ear; F31.9 Bipolar disorder, unspecified; G43.909 Migraine, unspecified, not intractable, without status migrainosus; F41.9 Anxiety disorder, unspecified; Z98.51 Tubal ligation status; Z98.890 Other specified postprocedural states

== ENCOUNTER 2023-03-28 14:39 | Emergency (ER) | payer OTHER ==
[~2023-03-28] VITALS: Ht 180.3 cm; Wt 117.9 kg
[~2023-03-28 14:39] MED LIST changes: +AMOX-CLAV 875-1 EACH PO; +CIPROFLOX-DEXA7.5 ML OT
== END 2023-03-28 17:16 | disposition home or self-care (01) ==
LOC: ED 14:39
DX: J06.9 Acute upper respiratory infection, unspecified (principal); Z20.822 Contact with and (suspected) exposure to COVID-19; H92.02 Otalgia, left ear; Z79.2 Long term (current) use of antibiotics; Z79.899 Other long term (current) drug therapy

== ENCOUNTER 2023-05-02 13:39 | Emergency (ER) | payer OTHER ==
[~2023-05-02] VITALS: Ht 177.8 cm; Wt 117.9 kg
[~2023-05-02 13:39] MED LIST changes: +AVPAK AZITHROM250 M1 PO
== END 2023-05-02 15:18 | disposition home or self-care (01) ==
LOC: ED 13:39
DX: S93.402A Sprain of unspecified ligament of left ankle, initial encounter (principal); F31.9 Bipolar disorder, unspecified; G43.909 Migraine, unspecified, not intractable, without status migrainosus; F41.9 Anxiety disorder, unspecified; Z98.890 Other specified postprocedural states; Z98.51 Tubal ligation status; Z87.891 Personal history of nicotine dependence; X50.1XXA Overexertion from prolonged static or awkward postures, initial encounter; Y93.89 Activity, other specified; Y92.89 Other specified places as the place of occurrence of the external cause; Y99.0 Civilian activity done for income or pay

== ENCOUNTER 2023-05-14 09:53 | Emergency (ER) | payer OTHER ==
[~2023-05-14] VITALS: Ht 180.3 cm; Wt 117.9 kg
[2023-05-14] MEDS ORDERED: PENICILLIN VK500 MG PO (11:09)
== END 2023-05-14 11:14 | disposition home or self-care (01) ==
LOC: ED 09:53
DX: K04.7 Periapical abscess without sinus (principal); J34.89 Other specified disorders of nose and nasal sinuses; F41.9 Anxiety disorder, unspecified; G43.909 Migraine, unspecified, not intractable, without status migrainosus; F17.200 Nicotine dependence, unspecified, uncomplicated

== ENCOUNTER 2023-06-30 08:54 | Emergency (ER) | payer OTHER ==
[~2023-06-30] VITALS: Ht 180.3 cm; Wt 98.0 kg
[2023-06-30] MEDS ORDERED: MUCINEX1200 M1 PO (11:07)
[2023-06-30] MEDS ORDERED: PREDNISONE50 MG PO (11:07)
[2023-06-30] MEDS ORDERED: VIBRAMYCIN100 MG PO (11:07)
[2023-06-30] MEDS ORDERED: PROVENTIL HFA6.7 GM INH (11:07)
== END 2023-06-30 11:26 | disposition home or self-care (01) ==
LOC: ED 08:54
DX: J44.1 Chronic obstructive pulmonary disease with (acute) exacerbation (principal); F41.9 Anxiety disorder, unspecified; G43.909 Migraine, unspecified, not intractable, without status migrainosus; F31.9 Bipolar disorder, unspecified; Z98.51 Tubal ligation status; J06.9 Acute upper respiratory infection, unspecified; Z98.890 Other specified postprocedural states; F17.210 Nicotine dependence, cigarettes, uncomplicated; Z20.822 Contact with and (suspected) exposure to COVID-19

== ENCOUNTER 2023-07-06 09:45 | Emergency (ER) | payer OTHER ==
[~2023-07-06] VITALS: Ht 180.3 cm; Wt 117.9 kg
[2023-07-06] MEDS ORDERED: BROMFED DM COU118 M2 PO (13:43)
== END 2023-07-06 13:49 | disposition home or self-care (01) ==
LOC: ED 09:45
DX: J06.9 Acute upper respiratory infection, unspecified (principal); F31.9 Bipolar disorder, unspecified; F41.9 Anxiety disorder, unspecified; G43.909 Migraine, unspecified, not intractable, without status migrainosus; Z98.890 Other specified postprocedural states; Z98.51 Tubal ligation status

== ENCOUNTER 2023-09-16 08:22 | Emergency (ER) | payer OTHER ==
[~2023-09-16] VITALS: Ht 180.3 cm; Wt 117.9 kg
[2023-09-16] MEDS ORDERED: PREDNISONE50 MG PO (08:52)
[2023-09-16] MEDS ORDERED: CYCLOBENZAPRINE10 MG PO (08:52)
[2023-09-16] MEDS ORDERED: Cyclobenzaprine Hydrochlorid 10 MG TAB PO ONE (08:55)
[2023-09-16] MEDS ORDERED: ACETAMINOPHEN 325 MG TAB PO ONE (08:55)
[2023-09-16] MEDS ORDERED: methylPREDNISolone sod succ 125 MG VIAL IM ONE (08:55)
== END 2023-09-16 09:15 | disposition home or self-care (01) ==
LOC: ED 08:22
DX: S46.911A Strain of unspecified muscle, fascia and tendon at shoulder and upper arm level, right arm, initial encounter (principal); S29.012A Strain of muscle and tendon of back wall of thorax, initial encounter; F41.9 Anxiety disorder, unspecified; F31.9 Bipolar disorder, unspecified; G43.909 Migraine, unspecified, not intractable, without status migrainosus; Z98.890 Other specified postprocedural states; Z98.51 Tubal ligation status; X58.XXXA Exposure to other specified factors, initial encounter; Y93.89 Activity, other specified; Y92.89 Other specified places as the place of occurrence of the external cause; Y99.8 Other external cause status

== ENCOUNTER → 2023-09-29 | Outpatient (CLI) | payer OTHER ==
[~2023-09-29] MED LIST changes: +CYCLOBENZAPRINE10 MG PO
== END | disposition home or self-care (01) ==
LOC: RAD 12:12
PROVIDERS: ATTEND Nurse Practitioner Family
DX: M43.8X2 Other specified deforming dorsopathies, cervical region (principal); M25.78 Osteophyte, vertebrae; M54.12 Radiculopathy, cervical region; M25.511 Pain in right shoulder; G89.29 Other chronic pain

== ENCOUNTER 2024-03-29 18:04 | Emergency (ER) | payer OTHER ==
[~2024-03-29] VITALS: Ht 180.3 cm; Wt 117.9 kg
== END 2024-03-29 19:14 | disposition home or self-care (01) ==
LOC: ED 18:04
DX: U07.1 COVID-19 (principal); F41.9 Anxiety disorder, unspecified; J44.9 Chronic obstructive pulmonary disease, unspecified; E87.6 Hypokalemia; F31.9 Bipolar disorder, unspecified; G43.909 Migraine, unspecified, not intractable, without status migrainosus; Z98.51 Tubal ligation status; Z98.890 Other specified postprocedural states

== ENCOUNTER 2024-05-11 10:52 | Emergency (ER) | payer OTHER ==
[~2024-05-11] VITALS: Ht 180.3 cm; Wt 108.9 kg
[2024-05-11] MEDS ORDERED: METOPROLOL SUCC25 M2 PO (11:24)
[2024-05-11] MEDS ORDERED: Acetaminophen/Hydrocodone 5 MG/325 MG TABLET PO ONE (11:30)
[2024-05-11] MEDS ORDERED: IBUPROFEN600 MG PO (11:49)
[2024-05-11] MEDS ORDERED: IBUPROFEN 600 MG TAB PO ONE (11:50)
== END 2024-05-11 11:49 | disposition home or self-care (01) ==
LOC: ED 10:52
DX: S63.681A Other sprain of right thumb, initial encounter (principal); X50.0XXA Overexertion from strenuous movement or load, initial encounter; Y93.89 Activity, other specified; Y92.69 Other specified industrial and construction area as the place of occurrence of the external cause; Y99.0 Civilian activity done for income or pay

== ENCOUNTER 2024-05-15 19:20 | Emergency (ER) | payer OTHER ==
[~2024-05-15] VITALS: Ht 180.3 cm; Wt 108.9 kg
[~2024-05-15 19:20] MED LIST changes: +METOPROLOL SUCC25 M2 PO
[2024-05-15] MEDS ORDERED: NAPROSYN500 MG PO (20:57)
== END 2024-05-15 22:07 | disposition home or self-care (01) ==
LOC: ED 19:20
DX: S63.91XA Sprain of unspecified part of right wrist and hand, initial encounter (principal); F41.9 Anxiety disorder, unspecified; F31.9 Bipolar disorder, unspecified; Z98.51 Tubal ligation status; G43.909 Migraine, unspecified, not intractable, without status migrainosus; Z98.890 Other specified postprocedural states; X50.0XXA Overexertion from strenuous movement or load, initial encounter; Y93.89 Activity, other specified; Y92.89 Other specified places as the place of occurrence of the external cause; Y99.0 Civilian activity done for income or pay

== ENCOUNTER 2024-07-27 08:19 | Emergency (ER) | payer OTHER ==
[~2024-07-27] VITALS: Ht 180.3 cm; Wt 113.2 kg
[2024-07-27] MEDS ORDERED: Ondansetron4 MG PO (09:49)
== END 2024-07-27 10:11 | disposition home or self-care (01) ==
LOC: ED 08:19
DX: J32.9 Chronic sinusitis, unspecified (principal); Z20.822 Contact with and (suspected) exposure to COVID-19; R11.2 Nausea with vomiting, unspecified; F41.9 Anxiety disorder, unspecified; F31.9 Bipolar disorder, unspecified; G43.909 Migraine, unspecified, not intractable, without status migrainosus; F17.210 Nicotine dependence, cigarettes, uncomplicated; Z98.51 Tubal ligation status; Z98.890 Other specified postprocedural states

== ENCOUNTER 2024-10-06 14:20 | Emergency (ER) | payer OTHER ==
[~2024-10-06] VITALS: Ht 180.3 cm; Wt 117.9 kg
[~2024-10-06 14:20] MED LIST changes: +Ondansetron4 MG PO
[2024-10-06] MEDS ORDERED: Ketorolac Tromethamine 30 MG/ML VIAL IV ONE (14:35)
[2024-10-06] MEDS ORDERED: SODIUM CHLORIDE 0.9% 1,000 ML IV ONE (14:35)
[2024-10-06] MEDS ORDERED: diphenhydrAMINE hydrochloride 50 MG/ML VIAL IV ONE (14:40)
[2024-10-06] MEDS ORDERED: Metoclopramide Hydrochloride 10 MG/2 ML VIAL IV ONE (14:40)
[2024-10-06] MEDS ORDERED: Dexamethasone Sodium Phospha 20 MG/5 ML VIAL IV ONE (14:40)
== END 2024-10-06 16:10 | disposition home or self-care (01) ==
LOC: ED 14:20
DX: G43.909 Migraine, unspecified, not intractable, without status migrainosus (principal); F41.9 Anxiety disorder, unspecified; J44.9 Chronic obstructive pulmonary disease, unspecified; Z79.2 Long term (current) use of antibiotics

== ENCOUNTER 2025-03-28 13:55 | Emergency (ER) | payer OTHER ==
[~2025-03-28] VITALS: Ht 180.3 cm; Wt 120.2 kg
== END 2025-03-28 15:53 | disposition home or self-care (01) ==
LOC: ED 13:55
DX: J40 Bronchitis, not specified as acute or chronic (principal); F31.9 Bipolar disorder, unspecified; F41.9 Anxiety disorder, unspecified; G43.909 Migraine, unspecified, not intractable, without status migrainosus; Z79.899 Other long term (current) drug therapy; Z98.890 Other specified postprocedural states

== ENCOUNTER → 2025-05-13 | Outpatient (CLI) | payer OTHER | END | disposition home or self-care (01) | LOC: US 00:25 | PROVIDERS: ATTEND Nurse Practitioner Family | DX: K76.0 Fatty (change of) liver, not elsewhere classified (principal); R16.0 Hepatomegaly, not elsewhere classified; R10.9 Unspecified abdominal pain ==

== ENCOUNTER 2025-06-08 07:36 | Emergency (ER) | payer OTHER ==
[~2025-06-08] VITALS: Ht 180.3 cm; Wt 117.9 kg
[2025-06-08] MEDS ORDERED: TYLE3UD PO (07:57)
[2025-06-08] MEDS ORDERED: SUDAFED 12HR120 MG PO (07:57)
[2025-06-08] MEDS ORDERED: CEFDINIR300 MG PO (07:57)
== END 2025-06-08 08:06 | disposition home or self-care (01) ==
LOC: ED 07:36
DX: J02.0 Streptococcal pharyngitis (principal); F41.9 Anxiety disorder, unspecified; G43.909 Migraine, unspecified, not intractable, without status migrainosus; F31.9 Bipolar disorder, unspecified; Z98.51 Tubal ligation status

== ENCOUNTER → 2025-06-17 | Outpatient (CLI) | payer OTHER ==
[~2025-06-17] MED LIST changes: +CEFDINIR300 MG PO; +SUDAFED 12HR120 MG PO; +TYLE3UD PO
[2025-06-17 08:10] LABS: BASO # 0.1 10*3/uL (0.0-0.1); BASO % 0.8 % (0.0-1.0); EOS # 0.5 10*3/uL (0.0-0.4); EOS % 4.0 % (1.0-4.0); MEAN CELL VOLUME 89.7 fl (81.0-99.0); MEAN CORPUSCULAR HGB 29.7 pg (27.0-31.0); MEAN PLATELET VOLUME 8.7 fl (9.6-12.3); MONO # 0.8 10*3/uL (0.1-1.0); MONO % 6.4 % (3.0-9.0); NEUT # 6.5 10*3/uL (2.3-7.9); NEUT % 54.5 % (47.0-73.0); NUCLEATED RED BLOOD CELL 0.0 % (0.0-0.0); NUCLEATED RED BLOOD CELL 0.0 10*3/uL (0.0-0.0); PLATELET COUNT AUTOMATED 382 10*3/uL (130-400); RED CELL DISTRI WIDTH 11.6 % (0-14.5)
== END | disposition home or self-care (01) ==
LOC: LAB 07:50
PROVIDERS: ATTEND Nurse Practitioner Family
DX: E55.9 Vitamin D deficiency, unspecified (principal)

== ENCOUNTER 2025-06-26 12:40 | Emergency (ER) | payer OTHER ==
[~2025-06-26] VITALS: Ht 154.9 cm; Wt 102.5 kg
[2025-06-26] MEDS ORDERED: METHOCARBAMOL 750 MG TAB PO ONE (12:55)
[2025-06-26] MEDS ORDERED: IBUPROFEN 800 MG TAB PO ONE (12:55)
[2025-06-26] MEDS ORDERED: METHOCARBAMOL750 M1 PO (14:46)
== END 2025-06-26 14:54 | disposition home or self-care (01) ==
LOC: ED 12:40
DX: S29.011A Strain of muscle and tendon of front wall of thorax, initial encounter (principal); J06.9 Acute upper respiratory infection, unspecified; F41.9 Anxiety disorder, unspecified; F31.9 Bipolar disorder, unspecified; G43.909 Migraine, unspecified, not intractable, without status migrainosus; Z98.51 Tubal ligation status; X58.XXXA Exposure to other specified factors, initial encounter; Y93.89 Activity, other specified; Y92.89 Other specified places as the place of occurrence of the external cause; Y99.8 Other external cause status

== ENCOUNTER 2025-07-17 16:15 | Emergency (ER) | payer OTHER ==
[~2025-07-17 16:15] MED LIST changes: +METHOCARBAMOL750 M1 PO
[2025-07-17] MEDS ORDERED: Acetaminophen/Hydrocodone 5 MG/325 MG TABLET PO ONE (17:10)
[2025-07-17] MEDS ORDERED: HYDROCODONE-AC1 EAC1 PO (18:25)
== END 2025-07-17 18:36 | disposition home or self-care (01) ==
LOC: ED 16:15
DX: S82.402A Unspecified fracture of shaft of left fibula, initial encounter for closed fracture (principal); I10 Essential (primary) hypertension; F41.9 Anxiety disorder, unspecified; G43.909 Migraine, unspecified, not intractable, without status migrainosus; F31.9 Bipolar disorder, unspecified; W19.XXXA Unspecified fall, initial encounter; Y93.89 Activity, other specified; Y92.89 Other specified places as the place of occurrence of the external cause; Y99.8 Other external cause status